=== PATIENT | female | born 1940 | race Hispanic/Latino ===

== ENCOUNTER → 2017-12-22 | Outpatient (CLI) | payer OTHER | LOC: OIH 10:46 | PROVIDERS: ATTEND Family Medicine | DX: I70.0 Atherosclerosis of aorta (principal) | CPT/HCPCS: 71046 ==

== ENCOUNTER → 2022-12-22 | Outpatient (CLI) | payer OTHER | END | disposition home or self-care (01) | LOC: RAH 11:09 | PROVIDERS: ATTEND Family Medicine | DX: J20.9 Acute bronchitis, unspecified (principal); M47.814 Spondylosis without myelopathy or radiculopathy, thoracic region; Z90.49 Acquired absence of other specified parts of digestive tract | CPT/HCPCS: 71046 ==

== ENCOUNTER → 2023-01-14 | Outpatient (CLI) | payer OTHER | END | disposition home or self-care (01) | LOC: RAH 14:51 | PROVIDERS: ATTEND Family Medicine | DX: E11.42 Type 2 diabetes mellitus with diabetic polyneuropathy (principal) | CPT/HCPCS: 93922 ==

== ENCOUNTER 2024-11-29 11:00 | Emergency (ER) | payer OTHER, MEDICARE ==
[~2024-11-29] VITALS: Ht 157.5 cm; Wt 60.8 kg
--- NOTE | 2024-11-29 11:25 | ERN ---
General Chief Complaint: Laceration/Avulsion Stated Complaint: HEAD LACERATION Time Seen by MD: 11:03 History of Present Illness Initial Comments 84F presents for head injury. Yesterday she was getting something out of the cupboard and something fell and hit the top of her head. No loss of consciousness. No nausea or vomiting or confusion. She called her PCP today who recommend that she come to the ER. She came to the ER because bleeding this morning and she felt like she could not control the bleeding. Currently there is no active bleeding. There is a small laceration on the top of her head. No blood thinners. Allergies: Coded Allergies: No Known Allergies (Unverified Allergy, Unknown, 11/29/24) ROS Dictation CONSTITUTIONAL: No chills, no fever, no weakness, no diaphoresis, no malaise. HEAD/FACE: No signs of trauma. EENT: No eye pain, no blurred vision, no tearing, no double vision, no ear pain, no ear discharge, no nose pain, no nasal congestion, no throat pain, no throat swelling, no mouth pain. RESPIRATORY: No cough, no orthopnea, no SOB, no stridor, no wheezing. CARDIOVASCULAR: No chest pain, no edema, no palpitations, no syncope. GASTROINTESTINAL/ABDOMINAL: No abdominal pain, no constipation, no diarrhea, no nausea, no vomiting. GENITOURINARY: No abnormal discharge, no dysuria, no frequent urination, no hematuria. No complaints of pain in the genitals. MUSCULOSKELETAL: No back pain, no gout, no joint pain, no joint swelling, no muscle pain, no muscle stiffness, no neck pain. INTEGUMENTARY: No change in color, no change in hair/nails, no dryness, no lesion, no lumps, no rash. NEUROLOGICAL/PSYCH: No anxiety, not depressed, no emotional problem, no headache, no numbness, no pre-existing deficit, no history of seizures, no tremors, no weakness. HEMATOLOGIC/LYMPHATIC: Not anemic, no history of blood clots, no apparent bleeding, no bruising, glands not swollen. All Systems Negative, Except as Noted. Physical Exam Physical Exam Dictation VITAL SIGNS: Reviewed. GENERAL APPEARANCE: Alert, oriented x3, no acute distress HEAD AND FACE: Non-traumatic. EYES: PERRL, pink conjunctivas, eyelid no trauma, anterior chamber clear. EARS: Pinnas intact and no signs of trauma or erythema. Ear canals clear and no discharge. TMs no erythema. NOSE: No discharge, no bleeding. OROPHARYNX: Mouth normal, teeth no caries, tongue pink. Pharynx clear, no erythema. Tonsils no exudates, no abscesses noted. Mucous membrane moist. NECK: Supple, non-tender, no thyromegaly, no masses, no JVD, no bruits. BREAST: Deferred. CHEST: No tenderness, no crepitus, no paradoxical movement, no retractions. LUNGS: Clear, well-ventilated, symmetric, no rales, no wheezing, no rhonchi, no stridor, good breath sounds bilaterally. HEART: Regular rate, regular rhythm, no murmur, no gallops. VASCULAR: No peripheral edema. ABDOMEN: Soft, positive bowel sounds, nondistended, no guarding, nontender, no rebound, no masses no hepatomegaly, no splenomegaly, no Morgan's sign, no hernias. RECTAL: Deferred. GENITAL: Deferred. NEUROLOGICAL: Normal speech, gross motor function intact, gross sensory function intact. MUSCULOSKELETAL: Neck nontender, full range of motion, back nontender, full range of motion. EXTREMITIES: Nontender, full range of motion. SKIN: Color pink, dry, no turgor, no rash, no lacerations, no abrasions, no co ntusions. LYMPHATICS: Deferred. [facility] CC: Bleeding from the top of the head Historian: Patient Comorbidities: Advanced age diabetes Limitations by social determinants of health: None Differential diagnosis: Head injury, laceration, bleeding Vital signs are stable The wound was cleaned at the top of head. It is a very small laceration, less than 1 cm, no indication for repair. She has no significant signs of a head injury. Mentation he has been or neurologic symptoms. Since the injury happened over 24 hours ago, low suspicion significant pathology. We will DC to PCP follow up as needed. ED Course Vital Signs Date Time Temp Pulse Resp B/P (MAP) Pulse Ox O2 Delivery O2 Flow Rate FiO2 11/29/24 11:21 97.9 79 20 177/86 99 DX & DISP Disposition: Discharge Departure Impression: Primary Impression: Laceration of head Condition: Stable Additional Instructions: There are no dangerous findings on your workup here today. Your wound was cleaned. There is a very small laceration. It may bleed again. If it does hold direct pressure. Keep the wound clean with soap and water. Monitor for any signs of infection. Please return to the emergency department as needed. Referrals: [facility] MD (PCP) MARIAMA ESCALONA DO Nov 29, 2024 11:25
[2024-11-29 12:55] VITALS: BP 161/83; PULSE 79; RESP 20; TEMP 97.9; O2SAT 99
== END 2024-11-29 12:56 | disposition home or self-care (01) ==
LOC: EDH 11:00
DX: S01.01XA Laceration without foreign body of scalp, initial encounter (principal); E11.9 Type 2 diabetes mellitus without complications; W18.39XA Other fall on same level, initial encounter; Y93.89 Activity, other specified; Y92.89 Other specified places as the place of occurrence of the external cause; Y99.8 Other external cause status
CPT/HCPCS: 99281